=== PATIENT | female | born 1940 | race Hispanic/Latino ===

== ENCOUNTER → 2023-08-06 | Emergency (ER) | payer BC, OTHER ==
--- NOTE | 2023-08-06 18:27 | EDPHYS ---
Physician Documentation [facility] Name: Refugio Prince Age: 83 yrs Sex: Female : 1940 Arrival Date: 08/06/2023 Time: 17:48 Bed DX4 Private MD: ED Physician Michelet Slaughter Historical: - Allergies: 08/05 18:02 Benadryl; ld1 18:02 Clindamycin; ld1 18:02 Sulfa (Sulfonamide Antibiotics); ld1 18:02 QUINOLONES; ld1 18:02 Tebamide; ld1 - PMHx: 18:02 Hypertensive disorder; Alzheimer's disease; ld1 - Immunization history:: Adult Immunizations up to date. - Social history:: Smoking status: Patient denies any tobacco usage or history of. Patient/guardian denies using alcohol. Vital Signs: 18:01 BP 147 / 77; Pulse 75; Resp 18; Temp 97.3(TE); Pulse Ox 98% on R/A; Weight 47.63 kg; ld1 Height 5 ft. 0 in. ; Pain 0/10; 18:01 Body Mass Index 20.51 (47.63 kg, 152.4 cm) ld1 18:01 Pain Scale: Adult ld1 MDM: 17:53 Patient medically screened. kb Administered Medications: No medications were administered Disposition Summary: 08/06/23 18:27 Discharge Ordered Notes: Location: Home kb Condition: Stable kb Diagnosis - Mass to bilateral forearms kb - mass to right foot kb Followup: kb - With: Emergency Department - When: As needed - Reason: Worsening of condition Followup: kb - With: Private Physician - When: 2 - 3 days - Reason: Recheck today's complaints, Continuance of care, Re-evaluation by your physician Discharge Instructions: - Discharge Summary Sheet kb - [place] kb Forms: - Medication Reconciliation Form kb - Thank You Letter kb - Antibiotic Education kb - Prescription Opioid Use kb - Patient Portal Instructions kb - Leadership Thank You Letter kb Signatures: Klarissa Jones FNP-C FNP-Renee Gutierres RN RN ld1 Corrections: (The following items were deleted from the chart) 18:04 18:02 Allergies: Sulfacetamide Sodium; ld1 ld1
--- NOTE | 2023-08-06 18:27 | ER ---
Nurse's Notes [facility] Name: Refugio Prince Age: 83 yrs Sex: Female : 1940 Arrival Date: 08/06/2023 Time: 17:48 Bed DX4 Private MD: Diagnosis: Mass to bilateral forearms;mass to right foot Presentation: 08/05 18:01 Chief complaint: Patient states: Swelling to right foot - noticed 1 week ago. ld1 Coronavirus screen: At this time, the client does not indicate any symptoms associated with coronavirus-19. Ebola Screen: No symptoms or risks identified at this time. Initial Sepsis Screen: Does the patient meet any 2 criteria? No. Patient's initial sepsis screen is negative. Does the patient have a suspected source of infection? No. Patient's initial sepsis screen is negative. Risk Assessment: Do you want to hurt yourself or someone else? Patient reports no desire to harm self or others. Onset of symptoms was August 06, 2023. 18:01 Method Of Arrival: Ambulatory ld1 18:01 Acuity: GARY 3 ld1 Triage Assessment: 18:02 General: Appears in no apparent distress. comfortable, Behavior is calm, cooperative, ld1 appropriate for age. Pain: Denies pain. EENT: No signs and/or symptoms were reported regarding the EENT system. Neuro: Level of Consciousness is awake, alert, obeys commands, Oriented to person, place, time, situation. Cardiovascular: Capillary refill < 3 seconds Patient's skin is warm and dry. Respiratory: Airway is patent Respiratory effort is even, unlabored. GI: Abdomen is flat, non-distended. : No signs and/or symptoms were reported regarding the genitourinary system. Derm: No signs and/or symptoms reported regarding the dermatologic system. Musculoskeletal: No signs and/or symptoms reported regarding the musculoskeletal system. Historical: - Allergies: 18:02 Benadryl; ld1 18:02 Clindamycin; ld1 18:02 Sulfa (Sulfonamide Antibiotics); ld1 18:02 QUINOLONES; ld1 18:02 Tebamide; ld1 - PMHx: 18:02 Hypertensive disorder; Alzheimer's disease; ld1 - Immunization history:: Adult Immunizations up to date. - Social history:: Smoking status: Patient denies any tobacco usage or history of. Patient/guardian denies using alcohol. Screenin:32 [facility] ED Fall Risk Assessment (Adult) History of falling in the last 3 months, kd3 including since admission No falls in past 3 months (0 pts) Confusion or Disorientation No (0 pts) Intoxicated or Sedated No (0 pts) Impaired Gait Yes (1 pt) Mobility Assist Device Used Yes (1 pt) Altered Elimination No (0 pt) Score/Fall Risk Level 0 - 2 = Low Risk Maintained a safe environment. Abuse screen: Denies threats or abuse. Denies injuries from another. Nutritional screening: No deficits noted. Tuberculosis screening: No symptoms or risk factors identified. Vital Signs: 18:01 BP 147 / 77; Pulse 75; Resp 18; Temp 97.3(TE); Pulse Ox 98% on R/A; Weight 47.63 kg; ld1 Height 5 ft. 0 in. ; Pain 0/10; 18:01 Body Mass Index 20.51 (47.63 kg, 152.4 cm) ld1 18:01 Pain Scale: Adult ld1 ED Course: 17:52 Patient arrived in ED. mg5 17:53 Klarissa Jones FNP-C is [facility]. kb 17:53 Michelet Slaughter MD is Attending Physician. kb 18:02 Triage completed. ld1 18:02 Arm band placed on right wrist. ld1 18:32 Preeti Lanza, RN is Primary Nurse. kd3 18:32 Patient has correct armband on for positive identification. Provided Education on: Pt kd3 provided with a list of surgeons . 18:32 No provider procedures requiring assistance completed. Patient did not have IV access kd3 during this emergency room visit. Administered Medications: No medications were administered Medication: 18:32 VIS not applicable for this client. kd3 Outcome: 18:27 Discharge ordered by MD. kb 18:32 Discharged to home ambulatory, kd3 18:32 Condition: stable 18:32 Discharge instructions given to patient, Instructed on discharge instructions, follow up and referral plans. Demonstrated understanding of instructions, follow-up care, 18:33 Patient left the ED. kd3 Signatures: Klarissa Jones FNP-C FNP-Renee Gutierres RN RN ld1 Preeti Lanza RN RN kd3 Antoinette James mg5 Corrections: (The following items were deleted from the chart) 18:04 18:02 Allergies: Sulfacetamide Sodium; ld1 ld1
[2023-08-06 19:06] VITALS: BP 147/77; TEMP 97.3; O2SAT 98
== END ==
LOC: ER 17:48
DX: R22.33 Localized swelling, mass and lump, upper limb, bilateral (principal); R22.41 Localized swelling, mass and lump, right lower limb; G30.9 Alzheimer's disease, unspecified; F02.80 Dementia in other diseases classified elsewhere, unspecified severity, without behavioral disturbance, psychotic disturbance, mood disturbance, and anxiety; I10 Essential (primary) hypertension; Z88.2 Allergy status to sulfonamides; Z88.3 Allergy status to other anti-infective agents; Z88.5 Allergy status to narcotic agent; Z88.8 Allergy status to other drugs, medicaments and biological substances